=== PATIENT | female | born 1955 | race Caucasian/White ===

== ENCOUNTER 2018-04-09 17:19 | Inpatient (IN) | payer MEDICAID, SELFPAY ==
[2018-04-09 17:52] LABS: BASO # 0.1 10^3/uL (0.0-0.2); BASO % 0.3 % (0.0-1.0); EOS % 0.1 % (0.0-3.0); HEMOGLOBIN 12.2 g/dl (12.0-15.5); IMMATURE GRANULOCYTE % 0.8 % (0-3.0); LYMPH # 3.2 10^3/uL (1.5-4.5); LYMPH % 15.5 % (24.0-44.0); MEAN CORPUSCULAR HEMOGLOBIN 36.4 pg (27.0-33.0); MEAN CORPUSCULAR HGB CONC 33.9 g/dl (32.0-36.5); MEAN CORPUSCULAR VOLUME 107.5 fl (80.0-96.0); MONO # 1.7 10^3/uL (0.0-0.8); MONO % 8.3 % (0.0-5.0); NEUTROPHILS # 15.4 10^3/uL (1.8-7.7); PLATELET COUNT, AUTOMATED 115 10^3/uL (150-450); RED BLOOD COUNT 3.35 10^6/uL (4.00-5.40); RED CELL DISTRIBUTION WIDTH 15.4 % (11.5-14.5); WHITE BLOOD COUNT 20.6 10^3/uL (4.0-10.0)
[2018-04-09 18:08] LABS: INR 1.39; PROTHROMBIN TIME 17.3 SECONDS (12.1-14.4)
[2018-04-09] MEDS: ONDANSETRON 4MG/2ML VIAL (J2405) IV (18:08)
[2018-04-09] MEDS: NS 1,000 ML IV ×2 (18:08→21:30)
[2018-04-09 18:09] LABS: PARTIAL THROMBOPLASTIN TIME 36.4 SECONDS (25.4-37.6)
[2018-04-09] MEDS: MORPHINE 4 MG/ML 1ML VIAL/SYRINGE (J2270) IV ×2 (18:10→20:00)
[2018-04-09 18:19] LABS: ALBUMIN 3.2 GM/DL (3.2-5.2); ALBUMIN/GLOBULIN RATIO 0.63 (1.00-1.93); ALKALINE PHOSPHATASE 106 U/L (45-117); ALT/SGPT 53 U/L (12-78); ANION GAP 13 MEQ/L (8-16); AST/SGOT 55 U/L (7-37); BILIRUBIN,DIRECT 1.5 MG/DL (0.0-0.2); BLOOD UREA NITROGEN 12 MG/DL (7-18); CALCIUM LEVEL 8.6 MG/DL (8.8-10.2); CARBON DIOXIDE LEVEL 25 MEQ/L (21-32); CHLORIDE LEVEL 97 MEQ/L (98-107); CREATININE FOR GFR 0.83 MG/DL (0.55-1.30); GLOMERULAR FILTRATION RATE > 60.0 (>45); GLUCOSE, FASTING 103 MG/DL (70-100); LIPASE 302 U/L (73-393); POTASSIUM SERUM 3.4 MEQ/L (3.5-5.1); SODIUM LEVEL 135 MEQ/L (136-145); TOTAL PROTEIN 8.3 GM/DL (6.4-8.2)
[2018-04-09] MEDS ORDERED: ISOVUE-370 76% 100ML VIAL (Q9967) As Ordered (19:39)
[2018-04-09] MEDS: GASTROGRAFIN SOLUTION 30ML PO ×2 (20:00→20:10)
[2018-04-09] MEDS: POTASSIUM CHLORIDE 10 MEQ SR TABLET PO (20:14)
[2018-04-09 20:37] LABS: KETONE, URINE AUTO RFX NEGATIVE (NEGATIVE); LEUKOCYTE ESTERASE UR AUTO RFX NEGATIVE (NEGATIVE); NITRITE, URINE AUTO RFX NEGATIVE (NEGATIVE); RBC, URINE AUTO RFX 1 /HPF (0-3); SPECIFIC GRAVITY UR AUTO RFX 1.005 (1.002-1.035); SQUAM EPITHELIAL CELL UR AURFX 1 /HPF (0-6); WBC, URINE AUTO RFX 1 /HPF (0-3)
[2018-04-09] MEDS: metroNIDAZOLE 500 MG in APPROPRIATE DILUENT 1 EA IV (21:55)
[2018-04-09] MEDS ORDERED: ONDANSETRON 4MG/2ML VIAL (J2405) IV (22:00)
[2018-04-09] MEDS ORDERED: MORPHINE 4 MG/ML 1ML VIAL/SYRINGE (J2270) IV (22:00)
[2018-04-09] MEDS ORDERED: LR 1,000 ML IV (22:00)
[2018-04-09] MEDS ORDERED: NICOTINE POLACRILEX 2 MG GUM PO (22:15)
[2018-04-09] MEDS: CIPROFLOXACIN 400 MG in APPROPRIATE DILUENT 1 EA IV (23:18)
[2018-04-10] MEDS: THIAMINE 100 MG TAB PO ×3 (00:12→21:09)
[2018-04-10] MEDS: POTASSIUM CHLORIDE 10 MEQ SR TABLET PO (00:13)
[2018-04-10] MEDS: NS 1,000 ML IV ×2 (00:14→12:11)
[2018-04-10] MEDS: MORPHINE 4 MG/ML 1ML VIAL/SYRINGE (J2270) IV (00:16)
[2018-04-10 02:45] LABS: INR 1.42; PROTHROMBIN TIME 17.6 SECONDS (12.1-14.4)
[2018-04-10 06:03] LABS: HEMATOCRIT 29.5 % (36.0-47.0); HEMOGLOBIN 9.9 g/dl (12.0-15.5); MEAN CORPUSCULAR HEMOGLOBIN 36.4 pg (27.0-33.0); MEAN CORPUSCULAR HGB CONC 33.6 g/dl (32.0-36.5); MEAN CORPUSCULAR VOLUME 108.5 fl (80.0-96.0); RED BLOOD COUNT 2.72 10^6/uL (4.00-5.40); RED CELL DISTRIBUTION WIDTH 15.5 % (11.5-14.5); WHITE BLOOD COUNT 13.6 10^3/uL (4.0-10.0)
[2018-04-10] MEDS: metroNIDAZOLE 500 MG in APPROPRIATE DILUENT 1 EA IV ×3 (06:05→21:08)
[2018-04-10 06:08] LABS: PLATELET COUNT, AUTOMATED 83 10^3/uL (150-450)
[2018-04-10 06:09] LABS: PLATELET F 5.8
[2018-04-10 06:37] LABS: ALBUMIN 2.2 GM/DL (3.2-5.2); ALBUMIN/GLOBULIN RATIO 0.54 (1.00-1.93); ALKALINE PHOSPHATASE 81 U/L (45-117); ALT/SGPT 34 U/L (12-78); ANION GAP 7 MEQ/L (8-16); AST/SGOT 35 U/L (7-37); BILIRUBIN,TOTAL 2.1 MG/DL (0.2-1.0); BLOOD UREA NITROGEN 9 MG/DL (7-18); CALCIUM LEVEL 7.2 MG/DL (8.8-10.2); CARBON DIOXIDE LEVEL 26 MEQ/L (21-32); CHLORIDE LEVEL 105 MEQ/L (98-107); CREATININE FOR GFR 0.54 MG/DL (0.55-1.30); GLOMERULAR FILTRATION RATE > 60.0 (>45); GLUCOSE, FASTING 88 MG/DL (70-100); POTASSIUM SERUM 4.4 MEQ/L (3.5-5.1); SODIUM LEVEL 138 MEQ/L (136-145); TOTAL PROTEIN 6.3 GM/DL (6.4-8.2)
[2018-04-10] MEDS ORDERED: ENOXAPARIN 40 MG/0.4 ML SYRINGE (J1650) SC (09:00)
[2018-04-10] MEDS: FOLIC ACID 1 MG TAB PO (09:23)
[2018-04-10] MEDS: LevoFLOXacin IV 750 MG in APPROPRIATE DILUENT 1 EA IV (09:24)
[2018-04-10] MEDS: MULTIVITAMINS/MINERALS THERAP 1 TAB PO (09:25)
[2018-04-10 11:05] LABS: HEPATITIS A ANTIBODY IGM NEGATIVE (NEGATIVE); HEPATITIS B CORE ANTIBODY IGM NEGATIVE (NEGATIVE); HEPATITIS B SURFACE ANTIGEN NEGATIVE (NEGATIVE)
[2018-04-10 11:19] LABS: HEPATITIS C VIRUS ABY INDEX > 11.0 INDEX (<0.8)
[2018-04-10 13:09] LABS: HEMATOCRIT 34.1 % (36.0-47.0); HEMOGLOBIN 11.3 g/dl (12.0-15.5); MEAN CORPUSCULAR HEMOGLOBIN 36.7 pg (27.0-33.0); MEAN CORPUSCULAR HGB CONC 33.1 g/dl (32.0-36.5); MEAN CORPUSCULAR VOLUME 110.7 fl (80.0-96.0); PLATELET COUNT, AUTOMATED 98 10^3/uL (150-450); RED BLOOD COUNT 3.08 10^6/uL (4.00-5.40); RED CELL DISTRIBUTION WIDTH 15.1 % (11.5-14.5); WHITE BLOOD COUNT 13.4 10^3/uL (4.0-10.0)
[2018-04-10] MEDS: PERCOCET 5MG/325MG TAB PO ×2 (13:57→21:09)
[2018-04-10 18:28] LABS: HEMATOCRIT 30.9 % (36.0-47.0); HEMOGLOBIN 10.4 g/dl (12.0-15.5); MEAN CORPUSCULAR HEMOGLOBIN 36.9 pg (27.0-33.0); MEAN CORPUSCULAR HGB CONC 33.7 g/dl (32.0-36.5); MEAN CORPUSCULAR VOLUME 109.6 fl (80.0-96.0); RED BLOOD COUNT 2.82 10^6/uL (4.00-5.40); RED CELL DISTRIBUTION WIDTH 15.1 % (11.5-14.5); WHITE BLOOD COUNT 12.1 10^3/uL (4.0-10.0)
[2018-04-10 18:36] LABS: PLATELET COUNT, AUTOMATED 90 10^3/uL (150-450)
[2018-04-11 00:10] LABS: HEMOGLOBIN 9.8 g/dl (12.0-15.5); MEAN CORPUSCULAR HEMOGLOBIN 36.8 pg (27.0-33.0); MEAN CORPUSCULAR HGB CONC 33.8 g/dl (32.0-36.5); RED BLOOD COUNT 2.66 10^6/uL (4.00-5.40); WHITE BLOOD COUNT 10.4 10^3/uL (4.0-10.0)
[2018-04-11 00:43] LABS: PLATELET COUNT, AUTOMATED 83 10^3/uL (150-450); POS COUNT POS FLAG
[2018-04-11] MEDS: NS 1,000 ML IV ×2 (01:36→06:55)
[2018-04-11] MEDS: metroNIDAZOLE 500 MG in APPROPRIATE DILUENT 1 EA IV ×2 (05:41→15:56)
[2018-04-11] MEDS: PERCOCET 5MG/325MG TAB PO (05:47)
[2018-04-11 06:59] LABS: HEMATOCRIT 28.8 % (36.0-47.0); HEMOGLOBIN 9.8 g/dl (12.0-15.5); MEAN CORPUSCULAR HEMOGLOBIN 36.6 pg (27.0-33.0); MEAN CORPUSCULAR VOLUME 107.5 fl (80.0-96.0); RED BLOOD COUNT 2.68 10^6/uL (4.00-5.40); RED CELL DISTRIBUTION WIDTH 14.8 % (11.5-14.5); WHITE BLOOD COUNT 7.3 10^3/uL (4.0-10.0)
[2018-04-11 07:00] LABS: PLATELET COUNT, AUTOMATED 84 10^3/uL (150-450)
[2018-04-11 07:16] LABS: ALBUMIN/GLOBULIN RATIO 0.54 (1.00-1.93); ALKALINE PHOSPHATASE 91 U/L (45-117); ALT/SGPT 33 U/L (12-78); ANION GAP 5 MEQ/L (8-16); AST/SGOT 42 U/L (7-37); BILIRUBIN,TOTAL 1.7 MG/DL (0.2-1.0); BLOOD UREA NITROGEN 5 MG/DL (7-18); CALCIUM LEVEL 7.7 MG/DL (8.8-10.2); CARBON DIOXIDE LEVEL 26 MEQ/L (21-32); CHLORIDE LEVEL 108 MEQ/L (98-107); CREATININE FOR GFR 0.47 MG/DL (0.55-1.30); GLOMERULAR FILTRATION RATE > 60.0 (>45); GLUCOSE, FASTING 99 MG/DL (70-100); POTASSIUM SERUM 3.7 MEQ/L (3.5-5.1); SODIUM LEVEL 139 MEQ/L (136-145); TOTAL PROTEIN 5.7 GM/DL (6.4-8.2)
[2018-04-11] MEDS: THIAMINE 100 MG TAB PO (08:48)
[2018-04-11] MEDS: FOLIC ACID 1 MG TAB PO (08:48)
[2018-04-11] MEDS: MULTIVITAMINS/MINERALS THERAP 1 TAB PO (08:48)
[2018-04-11] MEDS: LevoFLOXacin IV 750 MG in APPROPRIATE DILUENT 1 EA IV (08:48)
[2018-04-13 11:15] LABS: HCV RNA NAA QUALITATIVE Positive (Negative)
[2018-04-14 14:21] LABS: CALPROTECTIN STOOL 264 ug/g (0-120)
== END 2018-04-11 17:10 | disposition home or self-care (01) | DRG 249 ==
LOC: M ED 17:19 → M ED INP 22:04 → M MSPAV 23:36
DX: K52.9 Noninfective gastroenteritis and colitis, unspecified (principal); D62 Acute posthemorrhagic anemia; K70.10 Alcoholic hepatitis without ascites; F17.210 Nicotine dependence, cigarettes, uncomplicated; F10.10 Alcohol abuse, uncomplicated; B19.20 Unspecified viral hepatitis C without hepatic coma

== ENCOUNTER → 2018-05-01 | Outpatient (CLI) | payer OTHER ==
[2018-05-01 12:48] LABS: INR 1.46; PROTHROMBIN TIME 17.9 SECONDS (12.1-14.4)
[2018-05-01 12:49] LABS: PARTIAL THROMBOPLASTIN TIME 37.1 SECONDS (25.4-37.6)
[2018-05-01 13:42] LABS: ALBUMIN/GLOBULIN RATIO 0.63 (1.00-1.93); ALKALINE PHOSPHATASE 85 U/L (45-117); ALT/SGPT 82 U/L (12-78); AST/SGOT 100 U/L (7-37); BILIRUBIN,DIRECT 0.7 MG/DL (0.0-0.2); BILIRUBIN,TOTAL 1.5 MG/DL (0.2-1.0); TOTAL PROTEIN 7.8 GM/DL (6.4-8.2)
[2018-05-02 10:14] LABS: ALPHA FETOPROTEIN TUMOR QUANT 14.2 NG/ML (<8.1)
[2018-05-02 10:43] LABS: CA19-9 TUMOR MARKER,CARBOHYDRA 51.6 U/ML (<35.0)
[2018-05-05 11:39] LABS: ALPHA 2-MACROGLOBULIN 393 mg/dL (110-276); ALT 74 IU/L (0-40); ANA (HEP2) Positive (.); APOLIPOPROTEIN A-1 59 mg/dL (116-209); Chitobioside Carbohydrat (ACCA 74 units (0-90); FIBROSIS SCORE 0.96 (0.00-0.21); GGT 78 IU/L (0-60); HAPTOGLOBIN 31 mg/dL (34-200); HEPATITIS C QUANTITATION 448130 IU/mL (.); HEPATITIS C VIRUS GENOTYPE 2b (.); HISTOPLASMOSIS ANTIBODY Negative (Neg:<1:1); Laminaribioside Carbohyd (ALCA 62 units (0-60); Mannobioside Carbohydrat (AMCA 36 units (0-100); NECROINFLAM SCORE 0.68 (0.00-0.17); NECROINFLAMM GRADE A3-Severe activity (.); Saccharomyces cerevisiae IgG A 15 units (0-50); TOTAL BILIRUBIN 1.5 mg/dL (0.0-1.2)
== END ==
LOC: M LAB 12:04
DX: E80.6 Other disorders of bilirubin metabolism (principal); D73.89 Other diseases of spleen; K52.9 Noninfective gastroenteritis and colitis, unspecified; Z28.21 Immunization not carried out because of patient refusal
CPT/HCPCS: 84460

== ENCOUNTER 2018-05-10 10:37 | Day surgery (SDC) | payer OTHER ==
[2018-05-10] MEDS: NS 1,000 ML IV (06:00)
[~2018-05-10 10:37] MED LIST: LIDOCAINE 2% INJ 100 MG/5 ML SDV (FOR ANES.) As Ordered; PROPOFOL 200 MG/20 ML VIAL As Ordered
== END 2018-05-10 13:38 | disposition home or self-care (01) ==
LOC: M OPP 10:37
DX: K92.1 Melena (principal); D12.4 Benign neoplasm of descending colon; K64.8 Other hemorrhoids; K52.9 Noninfective gastroenteritis and colitis, unspecified
CPT/HCPCS: 45385

== ENCOUNTER → 2018-05-16 | Outpatient (REF) | payer OTHER, MEDICAID | LOC: M SFHCPLAZ 08:44 | DX: R76.8 Other specified abnormal immunological findings in serum (principal) ==

== ENCOUNTER → 2018-05-20 | Outpatient (CLI) | payer OTHER ==
[2018-05-20 10:33] LABS: FERRITIN 158 NG/ML (8-252); IRON (FE) 91 UG/DL (50-170); TOTAL IRON BINDING CAPACITY 253 UG/DL (250-450); TOTAL PROTEIN 7.5 GM/DL (6.4-8.2)
[2018-05-22 10:17] LABS: VITAMIN B12 LEVEL 1986 PG/ML (247-911)
[2018-05-23 00:30] LABS: HOMOCYST(E)INE SERUM 12.3 umol/L (0.0-15.0)
[2018-05-23 00:30] LABS: Methylmalonic Acid 70 nmol/L (0-378)
[2018-05-23 10:15] LABS: ALBUMIN % 42.7 % (55.8-66.1); ALPHA-1-GLOBULIN % 3.8 % (2.9-4.9); ALPHA-1-GLOBULINS 0.29 GM/DL (0.17-0.41); ALPHA-2-GLOBULINS 0.74 GM/DL (0.42-0.99); ALPHA-2-GLOBULINS % 9.8 % (7.1-11.8); BETA-1-GLOBULINS % 6.3 % (4.7-7.2); BETA-2-GLOBULINS % 7.5 % (3.2-6.5); GAMMA GLOBULIN % 29.9 % (11.1-18.8)
[2018-05-23 10:16] LABS: BETA-1-GLOBULINS 0.47 GM/DL (0.28-0.60); BETA-2-GLOBULINS 0.56 GM/DL (0.19-0.55); GAMMA GLOBULINS 2.24 GM/DL (0.65-1.58)
== END ==
LOC: M RAD 09:23
DX: R77.2 Abnormality of alphafetoprotein (principal); R97.8 Other abnormal tumor markers; D64.9 Anemia, unspecified
CPT/HCPCS: 74181

== ENCOUNTER → 2018-06-12 | Outpatient (REF) | payer OTHER ==
[~2018-06-12] MED LIST changes: +ASPI325T PO; +BACITAB PO; +DIGE1CAP7 PO; +FLAG500T PO; +LEVA750T7 PO; -LIDOCAINE 2% INJ 100 MG/5 ML SDV (FOR ANES.) As Ordered; +MOTR200T44 PO; +NICO2GUM62 PO; +PRIL20TA2 PO; -PROPOFOL 200 MG/20 ML VIAL As Ordered; +THIA100TA PO
[2018-06-15 10:16] LABS: ANTI CENTROMERE ANTIBODY <0.2 AI (0.0-0.9); ANTI DOUBLE STRAND-DNA AB <1 IU/mL (0-9); ANTI SCLERODERMA ANTIBODIES <0.2 AI (0.0-0.9); ANTI-HISTONE ANTIBODIES 0.8 Units (0.0-0.9); ANTI-SMOOTH MUSCLE ANTIBODY 33 Units (0-19); SSA SJOGRENS A <0.2 AI (0.0-0.9); SSB SJOGRENS B 0.2 AI (0.0-0.9)
== END ==
LOC: M SFHCPLAZ 16:17
PROVIDERS: ATTEND Family Medicine
DX: R76.8 Other specified abnormal immunological findings in serum (principal)

== ENCOUNTER → 2018-07-04 | Outpatient (CLI) | payer OTHER ==
--- NOTE | 2018-07-05 06:28 | REP ---
Clinical: Cirrhosis . Technique: Peter scale ultrasound using curved array transducer. Findings: The liver demonstrates increased echogenicity suggesting fatty infiltration with few scattered small calcifications. No focal hepatic lesion identified. The pancreas is normal in appearance. The gallbladder is normal without gallstones, wall thickening or pericholecystic fluid. No biliary ductal dilatation is appreciated, and the common bile duct measures 6.0 mm diameter. The right kidney is normal in reniform shape without hydronephrosis and measures 11.0 x 4.5 x 4.4 cm cm. No ascites. Visualized portions of the abdominal aorta normal. Impression: 1. Hepatic steatosis. No focal hepatic lesion identified. Electronically Signed by Jose Fortune MD 07/05/2018 06:19 A
== END ==
LOC: M RAD 08:16
PROVIDERS: ATTEND Student in an Organized Health Care Education/Training Program
DX: K76.0 Fatty (change of) liver, not elsewhere classified (principal); R77.2 Abnormality of alphafetoprotein; K74.60 Unspecified cirrhosis of liver

== ENCOUNTER → 2018-07-17 | Outpatient (REF) | payer OTHER ==
[~2018-07-17] MED LIST changes: +FOLI1TAB11 PO
[2018-07-17 16:02] LABS: ALBUMIN 2.9 GM/DL (3.2-5.2); ALT/SGPT 77 U/L (12-78); BILIRUBIN,TOTAL 0.9 MG/DL (0.2-1.0); BLOOD UREA NITROGEN 10 MG/DL (7-18); CALCIUM LEVEL 8.7 MG/DL (8.8-10.2); CARBON DIOXIDE LEVEL 28 MEQ/L (21-32); CHLORIDE LEVEL 106 MEQ/L (98-107); CREATININE FOR GFR 0.62 MG/DL (0.55-1.30); GLOMERULAR FILTRATION RATE > 60.0 (>45); GLUCOSE, FASTING 91 MG/DL (70-100); POTASSIUM SERUM 3.6 MEQ/L (3.5-5.1); SODIUM LEVEL 140 MEQ/L (136-145); TOTAL PROTEIN 7.8 GM/DL (6.4-8.2)
[2018-07-17 16:03] LABS: BASO # 0.1 10^3/uL (0.0-0.2); BASO % 0.7 % (0.0-1.0); EOS # 0.1 10^3/uL (0.0-0.50); HEMATOCRIT 40.4 % (36.0-47.0); HEMOGLOBIN 13.1 g/dl (12.0-15.5); LYMPH # 2.6 10^3/uL (1.5-4.5); LYMPH % 27.8 % (24.0-44.0); MEAN CORPUSCULAR HEMOGLOBIN 35.4 pg (27.0-33.0); MEAN CORPUSCULAR HGB CONC 32.4 g/dl (32.0-36.5); MEAN CORPUSCULAR VOLUME 109.2 fl (80.0-96.0); MONO # 0.9 10^3/uL (0.0-0.8); MONO % 9.8 % (0.0-5.0); NEUTROPHILS # 5.6 10^3/uL (1.8-7.7); NEUTROPHILS % 60.1 % (36.0-66.0); PLATELET COUNT, AUTOMATED 144 10^3/uL (150-450); WHITE BLOOD COUNT 9.4 10^3/uL (4.0-10.0)
[2018-07-17 16:13] LABS: HEPATITIS B SURFACE ANTIBODY NEGATIVE (POSITIVE)
[2018-07-17 16:51] LABS: HIV 1&2 SCREEN CENTAUR NEGATIVE (NEGATIVE)
[2018-07-19 08:45] LABS: HEPATITIS A IgG TOTAL Negative (Negative); HEPATITIS B CORE ANTIBODY IGG Negative (Negative)
== END ==
LOC: M SFHCPLAZ 13:26
PROVIDERS: ATTEND Internal Medicine Infectious Disease
DX: B18.2 Chronic viral hepatitis C (principal)

== ENCOUNTER → 2018-07-27 | Outpatient (CLI) | payer OTHER ==
--- NOTE | 2018-07-27 09:01 | REP ---
Clinical: Cirrhosis. Technique: Real time doll scale ultrasound examination using curved array transducer. Findings: The liver demonstrates heterogeneous coarsened echotexture with subtle nodular contour insistent with diagnosis of cirrhosis. Fatty infiltration cannot be excluded. No focal hepatic lesion identified. Scattered calcifications suggest granulomas disease. Main portal vein is mildly dilated to 16.2 mm diameter. Spleen demonstrates scattered calcifications consistent with prior granulomas disease and measures 11.9 cm maximal length without focal splenic lesion identified. Pancreas is unremarkable. The gallbladder demonstrates mild wall thickening to 4 mm which may be related to chronic cirrhosis, but no gallstones, pericholecystic fluid or sonographic Espinoza's sign. No biliary ductal dilatation is appreciated and the common bile duct measures 6.1 mm diameter. The bilateral kidneys are normal in reniform shape without hydronephrosis. Right kidney measures 10.9 x 4.5 x 4.6 cm. Left kidney measures 10.7 x 5.2 x 6.3 cm. Abdominal aorta demonstrates atherosclerotic disease and measures 2.2 cm maximal diameter. No ascites. Impression: 1. Hepatocellular disease consistent with cirrhosis. No focal hepatic lesion identified. 2. Evidence of prior granulomas disease with hepatic and splenic calcifications. Electronically Signed by Jose Fortune MD 07/27/2018 08:53 A
[2018-07-27 09:37] LABS: ALBUMIN 2.8 GM/DL (3.2-5.2); ALT/SGPT 101 U/L (12-78); BILIRUBIN,DIRECT 0.6 MG/DL (0.0-0.2); BILIRUBIN,TOTAL 1.1 MG/DL (0.2-1.0); TOTAL PROTEIN 7.7 GM/DL (6.4-8.2)
[2018-07-28 08:07] LABS: HEPATITIS A IgG TOTAL Positive (Negative); HEPATITIS B CORE ANTIBODY IGG Negative (Negative)
[2018-07-28 12:07] LABS: HEPATITIS B SURFACE ANTIBODY NEGATIVE (POSITIVE)
== END ==
LOC: M RAD 07:48
PROVIDERS: ATTEND Internal Medicine Gastroenterology
DX: K74.60 Unspecified cirrhosis of liver (principal)

== ENCOUNTER → 2018-08-04 | Outpatient (CLI) | payer OTHER ==
[~2018-08-04] MED LIST changes: +PROHANCE 279.3MG/ML 15ML VIAL (A9576) As Ordered ONE
--- NOTE | 2018-08-04 15:01 | REP ---
MRI ABDOMEN WITHOUT AND WITH IV GADOLINIUM: HISTORY: Liver cirrhosis. Elevated alpha fetoprotein level. Comparison MRI study May 20, 2018. Comparison sonography July 27, 2018, comparison CT study April 09, 2018. Gadolinium enhancement dose: 12 mL of intravenous ProHance. MRI TECHNIQUE: Axial coronal T1- and T2-weighted scans were obtained. Sequences include spin-echo, fast spin echo, diffusion weighted, in- and [id number], and sequential dynamically acquired post gadolinium enhanced images. MRI FINDINGS: There is a mild amount of ascites in the upper abdomen. Some ascites is seen around the gallbladder and adjacent to the liver and spleen. No filling defect is seen in the gallbladder. No renal or adrenal lesion is observed on either side. The left lobe of the liver is somewhat prominent and liver edge is somewhat macronodular consistent with a history of cirrhosis. No biliary ductal dilation is seen either intrahepatic or extrahepatic. Pancreatic duct is normal in size. No pancreatic mass or cyst is observed. The spleen is 12.0 cm in greatest diameter at the upper range of normal. There are multiple low T1 low T2 signal intensity foci scattered in the liver and spleen consistent with a pattern of granulomatous calcifications seen in these organs on CT scanning. There is a somewhat mottled and heterogeneous pattern of early hepatic parenchymal contrast enhancement but there is no evidence of hypervascular liver lesion on early postcontrast images. No upper abdominal mass lesion is observed. IMPRESSION: Findings consistent with some cirrhosis. Borderline splenomegaly. Mild ascites. Hepatic and splenic granulomatous calcifications. No evidence of hepatic mass lesion. Electronically Signed by Tom Lorenzo MD 08/04/2018 03:46 P
== END ==
LOC: M RAD 09:24
PROVIDERS: ATTEND Student in an Organized Health Care Education/Training Program
DX: R77.2 Abnormality of alphafetoprotein (principal); R18.8 Other ascites; K74.60 Unspecified cirrhosis of liver
CPT/HCPCS: 74183; A9576

== ENCOUNTER 2018-08-24 11:53 | Day surgery (SDC) | payer OTHER ==
[~2018-08-24] VITALS: Ht 162.6 cm; Wt 60.8 kg
[~2018-08-24 11:53] MED LIST changes: +NS 1,000 ML IV ONE; -PROHANCE 279.3MG/ML 15ML VIAL (A9576) As Ordered ONE
[2018-08-24] MEDS ORDERED: PROPOFOL 200 MG/20 ML VIAL As Ordered ONE (12:04)
[2018-08-24] MEDS ORDERED: LIDOCAINE 2% INJ 100 MG/5 ML SDV (FOR ANES.) As Ordered ONE (12:04)
[2018-08-24] MEDS ORDERED: MAVY1TAB PO (12:25)
[2018-08-24 13:10] VITALS: BP 142/82
--- NOTE | 2018-08-24 13:16 | ROOR ---
Patient Name: Tanja Mancia Procedure Date: 08/24/2018 12:34 PM Date of : 1955 Age: 63 Room: [facility] Gender: Female Note Status: Finalized Procedure: Upper GI endoscopy Indications: Cirrhosis rule out esophageal varices Providers: Colton Ross MD Referring MD: MICHAEL ALVARADO [facility] MICHAEL Miranda Requesting Provider: Medicines: Monitored Anesthesia Care Complications: No immediate complications. Procedure: Pre-Anesthesia Assessment: - Prior to the procedure, a History and Physical was performed, and patient medications and allergies were reviewed. The patient is competent. The risks and benefits of the procedure and the sedation options and risks were discussed with the patient. All questions were answered and informed consent was obtained. Patient identification and proposed procedure were verified by the physician, the nurse and the anesthesiologist in the procedure room. Mental Status Examination: alert and oriented. Airway Examination: normal oropharyngeal airway and neck mobility. Respiratory Examination: clear to auscultation. CV Examination: normal. Prophylactic Antibiotics: The patient does not require prophylactic antibiotics. Prior Anticoagulants: The patient has taken no previous anticoagulant or antiplatelet agents. ASA Grade Assessment: III - A patient with severe systemic disease. After reviewing the risks and benefits, the patient was deemed in satisfactory condition to undergo the procedure. The anesthesia plan was to use monitored anesthesia care (MAC). Immediately prior to administration of medications, the patient was re-assessed for adequacy to receive sedatives. The heart rate, respiratory rate, oxygen saturations, blood pressure, adequacy of pulmonary ventilation, and response to care were monitored throughout the procedure. The physical status of the patient was re-assessed after the procedure. The Endoscope was introduced through the mouth, and advanced to the second part of duodenum. The upper GI endoscopy was accomplished without difficulty. The patient tolerated the procedure well. Findings: The Z-line was regular and was found in the distal esophagus. There is no endoscopic evidence of esophagitis or varices in the entire esophagus. Diffuse moderate inflammation characterized by congestion (edema), erythema, friability and granularity was found in the gastric body and in the gastric antrum. Biopsies were taken with a cold forceps for histology. Biopsies were taken with a cold forceps for Helicobacter pylori testing. Verification of patient identification for the specimen was done by the physician and nurse using the patient's name, date and medical record number. Estimated blood loss was minimal. The duodenal bulb and second portion of the duodenum were normal. Impression: - Z-line regular, in the distal esophagus. - Gastritis. Biopsied. - Normal duodenal bulb and second portion of the duodenum. Recommendation: - Patient has a contact number available for emergencies. The signs and symptoms of potential delayed complications were discussed with the patient. Return to normal activities tomorrow. Written discharge instructions were provided to the patient. - Low sodium diet. - Continue present medications. - Await pathology results. - Return to GI clinic in 1 month. - Return to primary care physician. Colton Ross MD Colton Ross MD 08/24/2018 1:16:05 PM This report has been signed electronically. Number of Addenda: 0 Note Initiated On: 08/24/2018 12:34 PM Estimated Blood Loss: Estimated blood loss was minimal.
== END 2018-08-24 13:30 | disposition home or self-care (01) ==
LOC: M OPP 11:53
PROVIDERS: ATTEND Internal Medicine Gastroenterology
DX: K74.60 Unspecified cirrhosis of liver (principal); K29.70 Gastritis, unspecified, without bleeding; Z79.899 Other long term (current) drug therapy; F17.210 Nicotine dependence, cigarettes, uncomplicated

== ENCOUNTER → 2018-08-26 | Outpatient (CLI) | payer OTHER ==
[~2018-08-26] MED LIST changes: +MAVY1TAB PO; -NS 1,000 ML IV ONE
[2018-08-26 12:29] LABS: ALBUMIN 2.7 GM/DL (3.2-5.2); BILIRUBIN,DIRECT 1.3 MG/DL (0.0-0.2); TOTAL PROTEIN 7.3 GM/DL (6.4-8.2)
[2018-08-30 14:15] LABS: HEPATITIS C QUANTITATION 160 IU/mL (.)
== END ==
LOC: M LAB 10:54
PROVIDERS: ATTEND Internal Medicine Infectious Disease
DX: B18.2 Chronic viral hepatitis C (principal)

== ENCOUNTER → 2018-10-10 | Outpatient (CLI) | payer OTHER ==
[~2018-10-10] MED LIST changes: +ASPI-1 PO; -ASPI325T PO
[2018-10-10 16:41] LABS: BASO % 0.4 % (0.0-1.0); EOS # 0.1 10^3/uL (0.0-0.50); EOS % 1.4 % (0.0-3.0); HEMATOCRIT 40.3 % (36.0-47.0); HEMOGLOBIN 13.5 g/dl (12.0-15.5); LYMPH # 3.1 10^3/uL (1.5-4.5); LYMPH % 31.8 % (24.0-44.0); MEAN CORPUSCULAR HEMOGLOBIN 34.5 pg (27.0-33.0); MEAN CORPUSCULAR HGB CONC 33.5 g/dl (32.0-36.5); MEAN CORPUSCULAR VOLUME 103.1 fl (80.0-96.0); MONO # 0.9 10^3/uL (0.0-0.8); MONO % 9.3 % (0.0-5.0); NEUTROPHILS # 5.4 10^3/uL (1.8-7.7); NEUTROPHILS % 56.8 % (36.0-66.0); PLATELET COUNT, AUTOMATED 107 10^3/uL (150-450); RED BLOOD COUNT 3.91 10^6/uL (4.00-5.40); WHITE BLOOD COUNT 9.6 10^3/uL (4.0-10.0)
[2018-10-10 16:51] LABS: ALT/SGPT 35 U/L (12-78); BILIRUBIN,DIRECT 0.8 MG/DL (0.0-0.2); BILIRUBIN,TOTAL 1.6 MG/DL (0.2-1.0); BLOOD UREA NITROGEN 9 MG/DL (7-18); CREATININE FOR GFR 0.76 MG/DL (0.55-1.30); GLOMERULAR FILTRATION RATE > 60.0 (>45); TOTAL PROTEIN 7.8 GM/DL (6.4-8.2)
[2018-10-10 16:53] LABS: INR 1.36
[2018-10-10 16:54] LABS: PARTIAL THROMBOPLASTIN TIME 40.8 SECONDS (25.4-37.6)
== END ==
LOC: M LAB 16:06
PROVIDERS: ATTEND Internal Medicine Gastroenterology
DX: B18.2 Chronic viral hepatitis C (principal); K74.60 Unspecified cirrhosis of liver

== ENCOUNTER → 2019-01-30 | Outpatient (CLI) | payer OTHER ==
--- NOTE | 2019-01-30 08:08 | REP ---
Clinical: Cirrhosis. Technique: Real time doll scale and color evaluation using curved array transducer. Comparison: 07/27/2018. Findings: For liver demonstrates nodular contour with coarsened echotexture consistent with cirrhosis scattered echogenic foci are identified which are nonspecific but may represent small parenchymal calcifications. Pancreas is normal in appearance. The gallbladder demonstrates mild wall thickening to 3 mm and two echogenic foci without shadowing up to 4 mm suggesting small benign polyps. Right kidney is normal in reniform shape without hydronephrosis and measures 10.2 x 4.6 x 5.2 cm. No ascites. Impression: 1. Findings compatible with cirrhosis and possible sequelae of prior granulomatous disease. 2. Two 4 mm presumed gallbladder polyps. Electronically Signed by Jose Fortune MD 01/30/2019 07:59 A
[2019-01-30 08:52] LABS: ALBUMIN 3.2 GM/DL (3.2-5.2); BILIRUBIN,DIRECT 0.4 MG/DL (0.0-0.2); TOTAL PROTEIN 7.1 GM/DL (6.4-8.2)
== END ==
LOC: M RAD 06:54
PROVIDERS: ATTEND Internal Medicine Gastroenterology
DX: K74.60 Unspecified cirrhosis of liver (principal); K82.4 Cholesterolosis of gallbladder

== ENCOUNTER → 2019-03-01 | Outpatient (CLI) | payer OTHER ==
[~2019-03-01] MED LIST changes: +NICO2GUM52 PO; -NICO2GUM62 PO
--- NOTE | 2019-03-01 10:35 | REP ---
Clinical: Lung screening. History of nicotine dependence Comparison: None Technique: Axial low-dose noncontrast images from the thoracic inlet to the upper abdomen using lung screening technique. Findings: There is a 2.5 cm mass in the left lower lobe with spiculated margins along with suggestions for mediastinal lymph nodes measuring up to approximately 1.5 cm. Underlying COPD/emphysematous changes are appreciated along with plate-like atelectasis in the basilar right upper lobe. No effusion. No pneumothorax. Tracheobronchial tree is patent. Atherosclerotic changes to the aorta and coronary arteries noted. Impression: Lung-RADS category IV-X. 2.5 cm mass in the left lower lobe suspicious for malignancy. Pulmonary consultation is recommended and PET-CT as well as biopsy should be considered for further investigation. Electronically Signed by Jose Fortune MD 03/01/2019 10:26 A
== END ==
LOC: M RAD 09:46
PROVIDERS: ATTEND Student in an Organized Health Care Education/Training Program
DX: Z12.2 Encounter for screening for malignant neoplasm of respiratory organs (principal); Z87.891 Personal history of nicotine dependence; R91.8 Other nonspecific abnormal finding of lung field

== ENCOUNTER → 2019-03-09 | Outpatient (REF) | payer OTHER ==
[2019-03-09 13:08] LABS: BASO % 0.7 % (0.0-1.0); EOS # 0.1 10^3/uL (0.0-0.5); EOS % 1.6 % (0.0-3.0); HEMATOCRIT 40.7 % (36.0-47.0); HEMOGLOBIN 13.6 g/dl (12.0-15.5); LYMPH # 1.7 10^3/uL (1.5-5.0); MEAN CORPUSCULAR HEMOGLOBIN 34.8 pg (27.0-33.0); MEAN CORPUSCULAR HGB CONC 33.4 g/dl (32.0-36.5); MEAN CORPUSCULAR VOLUME 104.1 fl (80.0-96.0); MONO # 0.6 10^3/uL (0.0-0.8); MONO % 10.5 % (0.0-5.0); NEUTROPHILS # 3.7 10^3/uL (1.5-8.5); RED BLOOD COUNT 3.91 10^6/uL (4.00-5.40); WHITE BLOOD COUNT 6.1 10^3/uL (4.0-10.0)
[2019-03-09 13:13] LABS: PLATELET COUNT, AUTOMATED 98 10^3/uL (150-450)
[2019-03-09 13:19] LABS: INR 1.26; PROTHROMBIN TIME 15.5 SECONDS (11.8-14.0)
[2019-03-09 13:20] LABS: PARTIAL THROMBOPLASTIN TIME 37.3 SECONDS (25.0-38.4)
[2019-03-09 13:45] LABS: ALBUMIN 3.8 GM/DL (3.2-5.2); ALT/SGPT 38 U/L (12-78); BILIRUBIN,TOTAL 1.1 MG/DL (0.2-1.0); BLOOD UREA NITROGEN 11 MG/DL (7-18); CALCIUM LEVEL 9.5 MG/DL (8.8-10.2); CARBON DIOXIDE LEVEL 27 MEQ/L (21-32); CHLORIDE LEVEL 106 MEQ/L (98-107); CREATININE FOR GFR 0.58 MG/DL (0.55-1.30); GLOMERULAR FILTRATION RATE > 60.0 (>45); GLUCOSE, FASTING 103 MG/DL (70-100); POTASSIUM SERUM 3.6 MEQ/L (3.5-5.1); SODIUM LEVEL 141 MEQ/L (136-145); TOTAL PROTEIN 7.7 GM/DL (6.4-8.2)
== END ==
LOC: M LAB REF 12:51
PROVIDERS: ATTEND Internal Medicine Pulmonary Disease
DX: K74.60 Unspecified cirrhosis of liver (principal)

== ENCOUNTER 2019-12-21 17:50 | Inpatient (IN) | payer OTHER ==
[~2019-12-21] VITALS: Ht 165.1 cm; Wt 61.0 kg
[~2019-12-21 17:50] MED LIST changes: +NICO-13 PO; -NICO2GUM52 PO
--- NOTE | 2019-12-21 19:26 | REP ---
Clinical: Trauma. Technique: AP and lateral views of the left humerus. Findings: There is a suspected pathologic transverse fracture through the mid humeral shaft. Mottled appearance to the underlying mid humeral shaft raises the possibility of bony lesion such as metastatic disease. There appears to be a mass in the visualized left mid lung zone and possible overlying soft tissue mass in the left lateral chest wall. Impression: 1. Transverse possibly pathologic fracture through the mid humeral shaft the underlying bony lesions such as metastasis. 2. Pulmonary mass and overlying soft tissue mass in the chest wall suspected. Electronically Signed by Jose Fortune MD 12/21/2019 07:17 P
[2019-12-21 19:51] LABS: BASO # 0.1 10^3/uL (0.0-0.2); BASO % 0.5 % (0.0-1.0); EOS % 0.3 % (0.0-3.0); HEMATOCRIT 38.1 % (36.0-47.0); HEMOGLOBIN 12.8 g/dl (12.0-15.5); LYMPH # 0.8 10^3/uL (1.5-5.0); LYMPH % 7.6 % (24.0-44.0); MEAN CORPUSCULAR HEMOGLOBIN 34.4 pg (27.0-33.0); MEAN CORPUSCULAR HGB CONC 33.6 g/dl (32.0-36.5); MEAN CORPUSCULAR VOLUME 102.4 fl (80.0-96.0); MONO # 1.2 10^3/uL (0.0-0.8); MONO % 11.1 % (0.0-5.0); NEUTROPHILS # 8.5 10^3/uL (1.5-8.5); NEUTROPHILS % 79.5 % (36.0-66.0); PLATELET COUNT, AUTOMATED 144 10^3/uL (150-450); RED BLOOD COUNT 3.72 10^6/uL (4.00-5.40); WHITE BLOOD COUNT 10.7 10^3/uL (4.0-10.0)
[2019-12-21 20:08] LABS: BLOOD UREA NITROGEN 8 MG/DL (7-18); C REACTIVE PROTEIN QUANTITATIV 0.53 MG/DL (0.00-0.30); CALCIUM LEVEL 8.9 MG/DL (8.8-10.2); CARBON DIOXIDE LEVEL 26 MEQ/L (21-32); CHLORIDE LEVEL 100 MEQ/L (98-107); CREATININE FOR GFR 0.51 MG/DL (0.55-1.30); GLOMERULAR FILTRATION RATE > 60.0 (>45); GLUCOSE, FASTING 99 MG/DL (70-100); POTASSIUM SERUM 3.7 MEQ/L (3.5-5.1); SODIUM LEVEL 133 MEQ/L (136-145)
[2019-12-21 20:10] LABS: ERYTHROCYTE SEDIMENTATION RATE 41 mm/hr (0-30)
[2019-12-21] MEDS ORDERED: PERCOCET 5MG/325MG TAB PO ONE (21:45)
--- NOTE | 2019-12-21 22:26 | HPEPDOC ---
General Date of Admission 12/21/19 Date of Service: Dec 21, 2019 Chief Complaint The patient is a 64-year-old female admitted with a reason for visit of Left Arm Problem. Source: Patient Exam Limitations: No limitations Timing/Duration: Day(s), Week(s) Severity: Moderate Associated Symptoms: Mechanical fall History of Present Illness Patient is 64 years old female with past medical history of EtOH abuse, COPD, hepatitis C treated in 2019 presented hospital with left humerus fracture. Patient stated that 3 days ago she developed mechanical fall due to unsteadiness. Since that time has been having left arm pain. Also she complains left mass on the left back over scapula area. Patient stated that she has been having the mass for 4-5 months and it has been growing rapidly. Patient was thinking it's an abscess. She didn't go to primary care physician due to COVID 19 situation. In ER patient was found to have large protruding foul smelling mass over left scapula area with necrosis, 10X5 cm. Left arm XR showed left mid pathological humerus fracture. Dr. Mancia contacted by phone she recommended brace placement. Chest x-ray showed mass of the left low lung area. From Previous records chest CT from 03/01/19 showed 2.5 cm mass in the left lower lobe suspicious for malignancy. Allergies Coded Allergies: No Known Allergies (Unverified , 08/15/18) Past Medical History Medical History GASTRITIS LIVER CIRRHOSIS CHRONIC HEP C W/O HEPATIC COMA ELEVATED AFP ELEVATED CA 19-9 HYPERBILIRUBINEMIA COLON TUBULAR ADENOMA 10MM ELEVATED ANTI-SMOOTH MUSCLE AB ALCOHOL USE D/O TOBACCO USE D/O Family History FATHER: 68 YRS, BONE CANCER, LYMPHOMA, LUNG CANCER, DIAGNOSED WITH CANCER MOTHER: ALIVE, COLON PROBLEMS 1 BROTHER(S) , 2 SISTER(S) . 1 SON(S) , 1 DAUGHTER(S) . Social History * Smoker: current smoker, greater than 1 pack/day Alcohol: heavy Drugs: denies A-FIB/CHADSVASC A-FIB History Current/History of A-Fib/PAF?: No Current PO Anticoag Therapy: No Review of Systems Constitutional: Denies: Chills, Fever Eyes: Denies: Pain ENT: Denies: Head Aches Skin: Reports: Lesions, Breakdown Pulmonary: Denies: Dyspnea Cardiovascular: Denies: Chest Pain Gastrointestinal: Denies: Nausea, Vomiting Genitourinary: Denies: Dysuria Hematologic: Denies: Bruising Endocrine: Denies: Polydipsia, Polyphagia Musculoskeletal: Reports: Arm Pain (left arm) Neurological: Denies: Weakness, Numbness Psych: Reports: Mood Normal Physical Examination General Exam: Positive: Alert, Cooperative Eye Exam: Positive: PERRLA ENT Exam: Positive: Atraumatic Neck Exam: Positive: Supple, Lymphadenopathy (supraclavicular lymph nodes enlargement), Other; Negative: JVD Chest Exam: Positive: Diminished Heart Exam: Positive: Rate Normal Telemetry: Positive: No significant arrhythmia Abdomen Exam: Positive: Normal bowel sounds Extremity Exam: Positive: Clubbing; Negative: Cyanosis Skin Exam: Positive: Breakdown (large mass over left scapular area at the level of T5 -T9 , foul smelling, with necrosis) Neuro Exam: Positive: Normal Speech Psych Exam: Positive: Mental status NL Vital Signs Vital Signs Date Time Temp Pulse Resp B/P (MAP) Pulse Ox O2 Delivery O2 Flow Rate FiO2 12/21/19 21:52 16 12/21/19 18:24 12/21/19 17:50 97.6 129 95 Room Air Laboratory Data Labs 24H Laboratory Tests 2 12/21/19 19:35: Immature Granulocyte % (Auto) 1.0, Neutrophils (%) (Auto) 79.5H, Lymphocytes (%) (Auto) 7.6L, Monocytes (%) (Auto) 11.1H, Eosinophils (%) (Auto) 0.3, Basophils (%) (Auto) 0.5, Neutrophils # (Auto) 8.5, Lymphocytes # (Auto) 0.8L, Monocytes # (Auto) 1.2H, Eosinophils # (Auto) 0.0, Basophils # (Auto) 0.1, Nucleated Red Blood Cells % (auto) 0.0, Erythrocyte Sedimentation Rate 41H, Anion Gap 7L, Glomerular Filtration Rate > 60.0, Calcium Level 8.9, C-Reactive Protein, Quantitative 0.53H CBC/BMP Laboratory Tests 12/21/19 19:35 Microbiology Microbiology 12/21/19 Blood Culture, Received Pending 12/21/19 Blood Culture, Received Pending Assessment/Plan Patient is 64 years old female with past medical history of EtOH abuse, COPD, hepatitis C treated in 2019 presented hospital with left humerus fracture. Patient stated that 3 days ago she developed mechanical fall due to unsteadiness. Since that time has been having left arm pain. Also she complains left mass on the left back over scapula area. Patient stated that she has been having the mass for 4-5 months and it has been growing rapidly. Patient was thinking it's an abscess. She didn't go to primary care physician due to COVID 19 situation. In ER patient was found to have large protruding foul smelling mass over left scapula area with necrosis, 10X5 cm. Left arm XR showed left mid pathological humerus fracture. Dr. Mancia contacted by phone she recommended brace placement. Chest x-ray showed mass of the left low lung area. From Previous records chest CT from 03/01/19 showed 2.5 cm mass in the left lower lobe suspicious for malignancy. Problems (1) Mass on back Status: Chronic Problem Text: Large mass over scapula area with necrosis Most likely secondary to malignancy Will need biopsy (2) Lung mass Status: Chronic Problem Text: Most likely secondary to malignancy X-ray showed left lower lobe mass We'll proceed with chest, abd, pelvis CT Patient will need biopsy (3) Left humeral fracture Status: Acute Problem Text: After mechanical fall Most likely pathological secondary to malignancy Dr. Mancia recommended brace Consider ortho consult in the morning (4) Lymphadenopathy Status: Chronic Problem Text: Most likely secondary to malignancy can be site of biopsy, specially right supraclavicular lymph node (5) Physical deconditioning Status: Chronic Problem Text: Due to cancer and EtOH abuse PT/OT (6) ETOH abuse Status: Chronic Problem Text: ciwa Plan / VTE VTE Prophylaxis Ordered?: Yes DAVIN BRADEN DO Dec 21, 2019 22:26
[2019-12-21] MEDS ORDERED: LORazepam 2 MG TAB PO PRN (22:30)
[2019-12-21] MEDS ORDERED: ISOVUE-370 76% 100ML VIAL As Ordered ONE (22:33)
[2019-12-21] MEDS ORDERED: MORPHINE 4 MG/ML 1ML VIAL/SYRINGE (J2270) IV STA (22:50)
[2019-12-21 23:17] VITALS: BP 138/78
[2019-12-21 23:30] VITALS: BP 138/78
--- NOTE | 2019-12-21 23:31 | REPVR ---
PROCEDURE INFORMATION: Exam: CT Abdomen And Pelvis With Contrast Exam date and time: 12/21/2019 11:03 PM Age: 64 years old Clinical indication: Mass, lump, or swelling; Additional info: Mets TECHNIQUE: Imaging protocol: Computed tomography of the abdomen and pelvis with intravenous contrast. Radiation optimization: All CT scans at this facility use at least one of these dose optimization techniques: automated exposure control; mA and/or kV adjustment per patient size (includes targeted exams where dose is matched to clinical indication); or iterative reconstruction. Contrast material: ISOVUE 370; Contrast volume: 100 ml; Contrast route: INTRAVENOUS (IV); COMPARISON: CT ABD/PEL W/IV ORAL CONTRAS 04/09/2018 8:56 PM FINDINGS: Liver: Multiple hepatic calcifications. Nodular surface of the liver with relative prominence of the caudate lobe. The liver attenuation is 62 Hounsfield units and the spleen is 109 Hounsfield units. Gallbladder and bile ducts: Normal. No calcified stones. No ductal dilation. Pancreas: Normal. No ductal dilation. Spleen: Multiple large splenic calcifications. Adrenals: Minimal calcification in the right adrenal. Kidneys and ureters: Normal. No hydronephrosis. Stomach and bowel: Unremarkable. No obstruction. No mucosal thickening. Appendix: A normal appendix is seen. Intraperitoneal space: Mild free fluid in the pelvis with a Hounsfield measurement of 4 which is greater than expected for physiologic origin, particularly in view of age. Vasculature: There is mild atherosclerotic calcification of the abdominal aorta with extension into the iliac arteries. Lymph nodes: Unremarkable. No enlarged lymph nodes. Bladder: There is bladder wall thickening, however, the bladder is nondistended and is nonspecific. Reproductive: Unremarkable as visualized. Bones/joints: Facet arthropathy of the lower lumbar spine with mild anterolisthesis of L4 relative to L5. Soft tissues: Unremarkable. IMPRESSION: 1. Mild free fluid in the pelvis which is slightly increased overall since 04/09/2018. 2. Old granulomatous disease of the liver and spleen. 3. Hepatic cirrhosis with fatty infiltration with question of slight progression since the prior study. 4. Decreased size of the CBD since the prior study. 5. Resolution of ascending colitis since the prior study. 6. Otherwise negative CT abdomen/pelvis. Electronically signed by: Darwin Jason On 12/21/2019 23:30:58 PM
[2019-12-21] MEDS: THIAMINE 100 MG TAB PO SCH (23:44)
[2019-12-21] MEDS: ACETAMINOPHEN TAB 650MG DOSE (2X325MG) PO SCH (23:44)
--- NOTE | 2019-12-21 23:48 | REPVR ---
PROCEDURE INFORMATION: Exam: CT Chest With Contrast Exam date and time: 12/21/2019 11:03 PM Age: 64 years old Clinical indication: Mass, lump, or swelling in the chest; Additional info: Mets TECHNIQUE: Imaging protocol: Computed tomography of the chest with intravenous contrast. Radiation optimization: All CT scans at this facility use at least one of these dose optimization techniques: automated exposure control; mA and/or kV adjustment per patient size (includes targeted exams where dose is matched to clinical indication); or iterative reconstruction. Contrast material: ISOVUE 370; Contrast volume: 100 ml; Contrast route: INTRAVENOUS (IV); COMPARISON: CR Chest, 2 view PA, Lat 12/21/2019 9:16 PM FINDINGS: Lungs: Large lobular mass with internal aeration or cavitation in the superior segment of the left lower lobe measuring 2.4 x 4.2 x 2.7 cm. There is some surrounding stranding and cicatrization and slight retraction of the nearby right major fissure. Fleischner follow up recommendations for incidental nodules are not indicated. Follow up per patient's medical condition. Pleural space: Unremarkable. No pneumothorax. No pleural effusion. Heart: Unremarkable. No cardiomegaly. No pericardial effusion. Pulmonary arteries: The main pulmonary artery measures 25 mm. Aorta: The ascending thoracic aorta measures 40 mm. Lymph nodes: Left axillary adenopathy with lobular mass measuring 5.1 x 2.8 x 3.6 cm. Enlarged mediastinal nodes about the great vessels, right paratracheal region and precarinal region which measure up to 2.0 x 3.1 cm in the precarinal region. Bones/joints: Ulcerating mass in the left back just caudal to the scapula and is closely associated with the skin measuring 8.7 x 4.4 x 5.1 cm. Soft tissues: Right supraclavicular lobular neck mass measuring 2.4 x 2.5 x 2.3 cm. IMPRESSION: 1. Ulcerating mass closely associated with the skin in the posterolateral left back just caudal to the scapula which is suspicious for malignancy. 2. Left axillary/lateral chest wall adenopathy consistent with metastasis. 3. Borderline mediastinal adenopathy which likely reflects metastasis. 4. Right supraclavicular mass which is likely metastatic measuring 2.4 x 2.3 x 2.5 cm. 5. Left lower lobe lobular mass with surrounding stranding and cicatrization with some retraction of the adjacent major fissure which is suspicious for metastatic disease. A primary lesion is not excluded. 6. Borderline aneurysmal dilatation of the ascending thoracic aorta measuring 40 mm. Electronically signed by: Darwin Jason On 12/21/2019 23:47:37 PM
[2019-12-22] MEDS: ACETAMINOPHEN TAB 650MG DOSE (2X325MG) PO SCH ×2 (05:29→12:01)
[2019-12-22 05:31] LABS: HEMATOCRIT 33.6 % (36.0-47.0); HEMOGLOBIN 11.3 g/dl (12.0-15.5); MEAN CORPUSCULAR HEMOGLOBIN 34.7 pg (27.0-33.0); MEAN CORPUSCULAR HGB CONC 33.6 g/dl (32.0-36.5); MEAN CORPUSCULAR VOLUME 103.1 fl (80.0-96.0); PLATELET COUNT, AUTOMATED 103 10^3/uL (150-450); RED BLOOD COUNT 3.26 10^6/uL (4.00-5.40); WHITE BLOOD COUNT 7.5 10^3/uL (4.0-10.0)
[2019-12-22 05:56] LABS: ALBUMIN 2.5 GM/DL (3.2-5.2); ALT/SGPT 43 U/L (12-78); BILIRUBIN,TOTAL 1.8 MG/DL (0.2-1.0); BLOOD UREA NITROGEN 11 MG/DL (7-18); CALCIUM LEVEL 8.2 MG/DL (8.8-10.2); CARBON DIOXIDE LEVEL 28 MEQ/L (21-32); CHLORIDE LEVEL 99 MEQ/L (98-107); CREATININE FOR GFR 0.44 MG/DL (0.55-1.30); GLOMERULAR FILTRATION RATE > 60.0 (>45); GLUCOSE, FASTING 82 MG/DL (70-100); MAGNESIUM LEVEL 1.6 MG/DL (1.8-2.4); POTASSIUM SERUM 3.4 MEQ/L (3.5-5.1); SODIUM LEVEL 133 MEQ/L (136-145); TOTAL PROTEIN 6.3 GM/DL (6.4-8.2)
[2019-12-22 06:00] VITALS: BP 135/78
--- NOTE | 2019-12-22 07:58 | REP ---
Clinical: Lung nodule. Technique: PA and lateral. Comparison: None. Findings: There is a 3.7 cm mass in the left mid lung zone along with suspected large mass in the left lateral chest wall. Remainder of lung carreon are relatively clear by radiographic evaluation. No effusion. No pneumothorax. Mediastinum and cardiac silhouette appear normal. Evaluation of the skeletal structures cannot exclude right fourth and ninth rib fractures of indeterminate age, but likely nonacute. Impression: 1. Left lung mass. Large mass in the lateral left chest wall. 2. Presumed old nondisplaced right rib fractures. Electronically Signed by Jose Fortune MD 12/22/2019 07:50 A
[2019-12-22] MEDS ORDERED: HEPARIN SOD (PORCINE) 5000UNITS/ML 1ML VIAL/SYRINGE SC SCH (09:00)
[2019-12-22] MEDS ORDERED: FOLIC ACID 1 MG TAB PO SCH (09:00)
[2019-12-22] MEDS ORDERED: POTASSIUM CHLORIDE 10 MEQ SR TABLET PO ONE (09:00)
[2019-12-22] MEDS ORDERED: MAG SULF 1GM/100ML (MAG RUN) 1 GM in IV 1 EA IV ONE (09:00)
[2019-12-22] MEDS ORDERED: MULTIVITAMINS/MINERALS THERAP 1 TAB PO SCH (09:00)
[2019-12-22] MEDS: THIAMINE 100 MG TAB PO SCH (10:14)
[2019-12-22] MEDS ORDERED: IBUP-1114 PO (11:04)
[2019-12-22] MEDS ORDERED: VITMTA PO (11:04)
[2019-12-22] MEDS ORDERED: FOLI1TAB11 PO (11:04)
[2019-12-22] MEDS ORDERED: OXYC1TAB23 PO (11:04)
--- NOTE | 2019-12-22 12:56 | CR ---
DATE OF CONSULTATION: 12/22/2019 CHIEF COMPLAINT: Left arm pain. HISTORY OF PRESENT ILLNESS: This is a 64-year-old female who states she has had multiple falls over the past few days. She had pain in her left arm, however, thought she had slept on it wrong. It was unfortunately worsening, and patient presented to the emergency room. She has a past medical history of ethanol abuse, chronic obstructive pulmonary disease (COPD), and hepatitis C, treated in 2019. She also has a complaint of a left mass on the back over the scapula. It has been there for 4-5 months and growing rapidly. She did not go to her primary care physician due to the COVID-19 situation. Chest x-ray has shown a mass in the left lower lung, suspicious for malignancy. PAST MEDICAL HISTORY: 1. Gastritis. 2. Liver cirrhosis. 3. Chronic hepatitis C. 4. Elevated alpha-fetoprotein (AFP) 5. Elevated CA19-19. 6. Hyperbilirubinemia. 7. Colon tubular adenoma. 8. Elevated antismooth muscle antibody. 9. Alcohol and tobacco use. SOCIAL HISTORY: Patient smokes more than a pack a day. She has heavy alcohol use. No drug use. PHYSICAL EXAMINATION: GENERAL: Well appearing, alert and oriented, cooperative. CHEST: Regular, nonlabored breathing. CARDIOVASCULAR: Regular radial pulse on the left. MUSCULOSKELETAL: Patient is in a well-padded splint and a sling. She is neurovascularly intact in the medial, ulnar, and radial distribution but has some paresthesias that come and go. IMAGING: Radiographs of the left humerus show likely pathologic fracture. PLAN: Patient was admitted to the hospital for malignancy workup. She will likely need a humeral nail given the pathologic nature of the fracture. Would recommend a CT scan of the left humerus while she is in house; however, she will most likely need to be seen at [facility] by Dr. Meek for further orthopedic treatment. Patient was in agreement with this plan. AYE
--- NOTE | 2019-12-22 14:04 | DS.PDOC ---
Discharge Summary General Date of Admission Dec 21, 2019 at 21:51 Date of Discharge 12/22/19 Discharge Summary PROCEDURES PERFORMED DURING STAY: None. ADMITTING DIAGNOSES: 1. Left humeral fracture. DISCHARGE DIAGNOSES: 1. Left humeral fracture, large necrotic mass at left scapular region, also a pulmonary mass mass in the left lower lobe, nicotine abuse, alcohol abuse, lymphadenopathy, physical deconditioning. COMPLICATIONS/CHIEF COMPLAINT: Left Humeral Fracture. HISTORY OF PRESENT ILLNESS: Patient is 64 years old female with past medical history of EtOH abuse, COPD, hepatitis C treated in 2019 presented hospital with left humerus fracture. Patient stated that 3 days ago she developed mechanical fall due to unsteadiness. Since that time has been having left arm pain. Also she complains left mass on the left back over scapula area. Patient stated that she has been having the mass for 4-5 months and it has been growing rapidly. Patient was thinking it's an abscess. She didn't go to primary care physician due to COVID 19 situation. In ER patient was found to have large protruding foul smelling mass over left scapula area with necrosis, 10X5 cm. Left arm XR showed left mid pathological humerus fracture. Dr. Mancia contacted by phone she recommended brace placement. Chest x-ray showed mass of the left low lung area. From Previous records chest CT from 03/01/19 showed 2.5 cm mass in the left lower lobe suspicious for malignancy. . HOSPITAL COURSE: Patient was admitted with the diagnoses of left humeral fracture, large necrotic mass at the left scapula, left lower lobe mass, alcohol and tobacco abuse and physical deconditioning. Patient was seen by Dr. Mancia and had applied the brace, and I also discussed her over the phone and she recommended we do refer patient to our office for possible surgery. The nail placement if the fracture is not pathological in nature. She would also like to get a CT of the left humerus done. Patient visits at our office. Patient refuses any further workup for her lung mass on her left scapular mass which also looks like secondary to malignancy, patient was informed about all the complications of not getting proper care and possible further dissemination of unknown carcinoma which can cause loss of her life, but according to patient, "she does not care", cardiac patient, she knows she has a lung mass and a scapular mass, but she doesn't want any further workup any further treatment. Patient will be discharged home with a shoulder sling and follow up with Dr. Mancia, Dr. Alfaro and PCP in one week . DISCHARGE MEDICATIONS: Please see below. ALLERGIES: Please see below. PHYSICAL EXAMINATION ON DISCHARGE: VITAL SIGNS: Please see below. GENERAL: Within normal limits HEENT: PERRLA. Extraocular movements intact NECK: Supple CARDIOVASCULAR EXAMINATION: S1, S2, regular RESPIRATORY EXAMINATION: Clear to A&P ABDOMINAL EXAMINATION: Benign EXTREMITIES: Large necrotic mass with foul smell. Left scapula SKIN: As above NEUROLOGICAL EXAMINATION: No focal motor sensory deficit PSYCHIATRIC EXAMINATION: Normal LABORATORY DATA: Please see below. IMAGING: CT chest CT chest:IMPRESSION: 1. Ulcerating mass closely associated with the skin in the posterolateral left back just caudal to the scapula which is suspicious for malignancy. 2. Left axillary/lateral chest wall adenopathy consistent with metastasis. 3. Borderline mediastinal adenopathy which likely reflects metastasis. 4. Right supraclavicular mass which is likely metastatic measuring 2.4 x 2.3 x 2.5 cm. 5. Left lower lobe lobular mass with surrounding stranding and cicatrization with some retraction of the adjacent major fissure which is suspicious for metastatic disease. A primary lesion is not excluded. 6. Borderline aneurysmal dilatation of the ascending thoracic aorta measuring 40 mm. PROGNOSIS: Poor ACTIVITY: As tolerated. DIET: As tolerated DISCHARGE PLAN: Discharged home to follow-up as an outpatient with orthopedic pulmonary and PCP in one week DISPOSITION: 01 Home, Self-Care. DISCHARGE INSTRUCTIONS: 1. As per discharge instructions. ITEMS TO FOLLOWUP ON ON OUTPATIENT: 1. As above. DISCHARGE CONDITION: Stable. TIME SPENT ON DISCHARGE: 22 minutes. Vital Signs/I&Os Vital Signs Date Time Temp Pulse Resp B/P (MAP) Pulse Ox O2 Delivery O2 Flow Rate FiO2 12/22/19 06:00 74 135/78 12/22/19 06:00 98.6 18 93 Room Air I&O- Last 24 Hours up to 6 AM 12/22/19 06:00 Intake Total 630 ml Output Total 100 ml Balance 530 ml Laboratory Data Labs 24H Laboratory Tests 2 12/21/19 19:35: Immature Granulocyte % (Auto) 1.0, Neutrophils (%) (Auto) 79.5H, Lymphocytes (%) (Auto) 7.6L, Monocytes (%) (Auto) 11.1H, Eosinophils (%) (Auto) 0.3, Basophils (%) (Auto) 0.5, Neutrophils # (Auto) 8.5, Lymphocytes # (Auto) 0.8L, Monocytes # (Auto) 1.2H, Eosinophils # (Auto) 0.0, Basophils # (Auto) 0.1, Nucleated Red Blood Cells % (auto) 0.0, Erythrocyte Sedimentation Rate 41H, Anion Gap 7L, Glomerular Filtration Rate > 60.0, Calcium Level 8.9, C-Reactive Protein, Quantitative 0.53H 12/22/19 05:15: Nucleated Red Blood Cells % (auto) 0.0, Anion Gap 6L, Glomerular Filtration Rate > 60.0, Calcium Level 8.2L, Magnesium Level 1.6L, Total Bilirubin 1.8H, A spartate Amino Transf (AST/SGOT) 58H, Alanine Aminotransferase (ALT/SGPT) 43, Alkaline Phosphatase 137H, Total Protein 6.3L, Albumin 2.5L, Albumin/Globulin Ratio 0.7L CBC/BMP Laboratory Tests 12/21/19 19:35 12/22/19 05:15 Microbiology Microbiology 12/21/19 Blood Culture, Received Pending 12/21/19 Blood Culture, Received Pending Discharge Medications Scheduled Folic Acid (Folic Acid) 1 Mg Tablet, 1 MG PO DAILY Multivitamins (Thera M Plus Tablet) 1 Each Tablet, 1 TAB PO DAILY Scheduled PRN Ibuprofen (Ibuprofen) 400 Mg Tablet, 400 MG PO Q6HP PRN for fever Oxycodone HCl/Acetaminophen (Oxycodone-Acetaminophen 5-325) 1 Each Tablet, 1 TAB PO TIDP PRN for pain Allergies Coded Allergies: No Known Allergies (Unverified , 08/15/18) KATLIN REDMOND MD Dec 22, 2019 14:04
--- NOTE | 2019-12-23 19:10 | REP ---
Clinical: Fracture. Technique: Axial noncontrast images through the left humerus with coronal and sagittal re-formations. Findings: A transverse fracture is identified through the mid humeral shaft. The fractured cortex demonstrates a somewhat mottled appearance raising the possibility of underlying pathology causing pathologic fracture. The remainder of the visualized cortex through the osseous structures appear relatively normal. Visualized portions of the left hemithorax demonstrates a mass in the left lower lobe as well as left axillary adenopathy and a soft tissue mass/open wound in the subcutaneous tissue just below the level of the scapula. Impression: 1. Transverse fracture through the humerus possibly with underlying metastatic focus. 2. Left lung mass, left axillary adenopathy, and soft tissue mass versus trauma in the visualized left posterior chest wall. Electronically Signed by Jose Fortune MD 12/23/2019 07:01 P
[2020-01-16] MEDS ORDERED: FOLI1TAB11 PO (09:58)
[2020-01-16] MEDS ORDERED: ALEV220T22 PO (09:58)
[2020-01-16] MEDS ORDERED: IBUP1TAB5 PO (09:58)
== END 2019-12-22 13:00 | disposition home or self-care (01) | DRG 342 ==
LOC: M ED 17:50 → M ED INP 21:51 → ENRESERV 22:32 → M MSPAV 23:17
PROVIDERS: ADMIT Internal Medicine; ATTEND Internal Medicine
DX: M84.522A Pathological fracture in neoplastic disease, left humerus, initial encounter for fracture (principal); C34.32 Malignant neoplasm of lower lobe, left bronchus or lung; K74.60 Unspecified cirrhosis of liver; R22.2 Localized swelling, mass and lump, trunk; R59.0 Localized enlarged lymph nodes; F10.10 Alcohol abuse, uncomplicated; J44.9 Chronic obstructive pulmonary disease, unspecified; F17.200 Nicotine dependence, unspecified, uncomplicated; R26.81 Unsteadiness on feet; R29.6 Repeated falls; B18.2 Chronic viral hepatitis C; Z66 Do not resuscitate; Z86.010 Personal history of colon polyps